=== PATIENT | male | born 1985 | race American Indian/Alaskan Native ===

== ENCOUNTER 2018-07-11 18:50 | Emergency (ER) | payer SELFPAY ==
--- NOTE | 2018-07-11 19:38 | ED PDOC ---
Arrival/HPI - General Historian: Patient - History of Present Illness Narrative History of Present Illness (Text): 07/11/18 20:11 33 year old M with no significant past medical history presents with complaints of nasal congestion, chest congestion, cough for the past 2-3 days with associated subjective and fevers and chills and productive of yellow mucous. 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 He reports symptoms were slightly improved with lemon tea and nyquil. Pt reports he has not ever received flu shot. He denies headache, dizziness, chest pain, palpitations, shortness of kasey th, joint pain, muscle aches, nausea, vomiting, diarrhea, dysuria. Past medical history: Denies SH: 1/2 pack cigarettes day x 10 years PSH: denies Hosp: denies FH: mother: Hypertension, father: none Meds: denies 07/11/18 20:27 Time/Duration: Prior to Arrival Symptom Onset: Gradual Symptom Course: Unchanged Activities at Onset: Light Associated Symptoms (Text): 07/11/18 20:34 nasal/chest congestion <Som Mao - Last Filed: 07/11/18 21:57> Past Medical History - Provider Review Nursing Documentation Reviewed: Yes - Past History Past History: No Previous - Past Medical History Past Medical History: No Previous <Som Mao - Last Filed: 07/11/18 21:57> Family/Social History - Physician Review Nursing Documentation Reviewed: Yes Family/Social History: Hypertension Smoking Status: Heavy Smoker > 10 Cigarettes Daily <Som Mao - Last Filed: 07/11/18 21:57> Allergies/Home Meds <Efrain Cool - Last Filed: 07/11/18 21:18> <Som Mao - Last Filed: 07/11/18 21:57> Allergies/Adverse Reactions: Allergies No Known Allergies Allergy (Verified 07/11/18 20:04) Review of Systems - Review of Systems Constitutional: Normal Eyes: Normal ENT: Sinus Congestion Respiratory: Cough, Sputum (yellow) Cardiovascular: Normal Gastrointestinal: Normal. absent: Diarrhea, Nausea, Vomiting Genitourinary Male: Normal. absent: Dysuria Musculoskeletal: Normal. absent: Arthralgias Skin: Normal Neurological: Normal Endocrine: Normal Hemo/Lymphatic: Normal Psychiatric: Normal <Som aMo - Last Filed: 07/11/18 21:57> Physical Exam Vital Signs Temp Pulse Resp BP Pulse Ox 07/11/18 20:06 100.1 F H 103 H 18 143/94 H 96 <Efrain Cool - Last Filed: 07/11/18 21:18> Vital Signs Reviewed: Yes Temperature: Afebrile Blood Pressure: Normal Pulse: Regular Respiratory Rate: Normal Appearance: Positive for: Well-Appearing, Non-Toxic, Comfortable Pain Distress: None Mental Status: Positive for: Alert and Oriented X 3 - Systems Exam Head: Present: Atraumatic, Normocephalic Pupils: Present: PERRL Extroacular Muscles: Present: EOMI Conjunctiva: Present: Normal Mouth: Present: Moist Mucous Membranes Neck: Present: Normal Range of Motion Respiratory/Chest: Present: Clear to Auscultation, Good Air Exchange. No: Respiratory Distress, Accessory Muscle Use Cardiovascular: Present: Regular Rate and Rhythm, Normal S1, S2. No: Murmurs Abdomen: No: Tenderness, Distention, Peritoneal Signs Back: Present: Normal Inspection Upper Extremity: Present: Normal Inspection. No: Cyanosis, Edema Lower Extremity: Present: Normal Inspection. No: Edema Neurological: Present: GCS=15, CN II-XII Intact, Speech Normal Skin: Present: Warm, Dry, Normal Color. No: Rashes Psychiatric: Present: Alert, Oriented x 3, Normal Insight, Normal Concentration <Som Mao Last Filed: 07/11/18 21:57> Medical Decision Making - Lab Interpretations Lab Results: Lab Results 07/11/18 20:50: Influenza Typ A,B (EIA) Negative for flu a/b - RAD Interpretation Radiology Orders: 07/11/18 20:25 CHEST TWO VIEWS (PA/LAT) [RAD] Stat <Efrain Cool - Last Filed: 07/11/18 21:18> ED Course and Treatment: 07/11/18 20:44 Impression: 33 year old M with no past medical history presents with complaints of nasal and chest congestion for 2-3 days. Differential diagnosis includes but not limited to: viral upper respiratory infection influenza infection pneumonia tachycardia Plan: rapid flu chest xray EKG reassess & dispo Progress Notes: Pt assessed at bedside in emergency department . Does not appear toxic. See plan - RAD Interpretation Narrative RAD Interpretations (Text): 07/11/18 21:57 Chest Xray: No acute findings Food Checker: ED Physician <Som Mao - Last Filed: 07/11/18 21:57> - PA / COMPOUNDING SCALER / Resident Statement / has reviewed & agrees with the documentation as recorded. / has examined the patient and agrees with the treatment plan. <Som Mao - Last Filed: 07/11/18 21:57> Disposition/Present on Arrival - Present on Arrival Any Indicators Present on Arrival: No History of DVT/PE: No History of Uncontrolled Diabetes: No Urinary Catheter: No History of Decub. Ulcer: No - Disposition Have Diagnosis and Disposition been Completed?: No Disposition Time: 21:18 Patient Plan: Discharge <Efrain Cool - Last Filed: 07/11/18 21:18> - Present on Arrival Any Indicators Present on Arrival: No - Disposition Patient Plan: Discharge <Som Mao - Last Filed: 07/11/18 21:57> - Disposition Diagnosis: Upper respiratory infection, viral Disposition: HOME/ ROUTINE Patient Problems: Current Active Problems Problem Status Onset Upper respiratory infection, viral Acute Condition: FAIR Discharge Instructions (ExitCare): Viral Upper Respiratory Infection, Adult (DC) Print Language: NAMIBIAN Additional Instructions: All medical record entries made by the Scribe were at my direction and personally dictated by me. I have reviewed the chart and agree that the record accurately reflects my personal performance of the history, physical exam, medical decision making, and the department course for this patient. I have also personally directed, reviewed, and agree with the discharge instructions and disposition. Prescriptions: Methylprednisolone [Medrol Dose Pack (21 tabs)] 4 mg PO DAILY #21 mg Referrals: Tanika Greenwood MD [Medical Doctor] - Follow up with primary [facility] [place] [Outside] - Follow up with primary Forms: [employer] ([place])
[2018-07-11 20:07] VITALS: BMI 27.3
[2018-07-11 21:43] VITALS: BP 140/82; PULSE 88; RESP 17; TEMP 100; O2SAT 100
--- NOTE | 2018-07-12 09:03 | RAD ---
Date of service: 07/11/2018 HISTORY: cough/congestion COMPARISON: No prior. TECHNIQUE: Chest PA and lateral FINDINGS: LUNGS: No active pulmonary disease. PLEURA: No significant pleural effusion identified. No pneumothorax apparent. CARDIOVASCULAR: No aortic atherosclerotic calcification present. Normal cardiac size. No pulmonary vascular congestion. OSSEOUS STRUCTURES: No significant abnormalities. VISUALIZED UPPER ABDOMEN: Normal. OTHER FINDINGS: None. IMPRESSION: No active disease.
--- NOTE | 2018-07-12 09:23 | CARD ---
APPROVED REPORT Date of service: 07/11/2018 EKG Measurement Heart [id number] ID [id number] <Conclusion> Normal sinus rhythm STTW changes c/w ischemia LVH
== END 2018-07-11 21:42 | disposition home or self-care (01) ==
LOC: ED 18:50
DX: J06.9 Acute upper respiratory infection, unspecified (principal); Z82.49 Family history of ischemic heart disease and other diseases of the circulatory system; F17.210 Nicotine dependence, cigarettes, uncomplicated